=== PATIENT | male | born 1980 | race Caucasian/White ===

== ENCOUNTER 2016-05-11 10:33 | Day surgery (SDC) | payer MEDICAID ==
[2016-05-09 10:25] VITALS: BMI 22.5
[~2016-05-11 10:33] MED LIST: LACTATED RINGERS 1,000 ML IV SCH; LIDOCAINE 1% 20 ML VIAL (10MG/ML) FOR IV START INTRADERMA PRN
[2016-05-11 12:02] VITALS: TEMP 97.4
[2016-05-11] MEDS ORDERED: PROPOFOL 10 MG/ML 20 ML VIAL IV ONE (12:41)
--- NOTE | 2016-05-11 13:18 | P.PCN ---
Date of Procedure: 05/11/16 Procedure(s) Performed: Procedure: Total colonoscopy. Preoperative diagnosis: Intermittent rectal bleeding. Postoperative diagnosis: Low-grade internal hemorrhoids without bleeding at the time of this exam, otherwise, exam to the cecum within normal limits. Preparation: HalfLytely prep. Sedation: Was provided by anesthesia. Brief clinical history: The patient is a 35-year-old male who is referred for this evaluation because of chronic intermittent rectal bleeding. The patient is on the constipated side and may not have a bowel movement for 3-4 days at a time. Sometimes he has painful bowel movements as well. There is family history of colon cancer in his grandparents. This would be his first colonoscopy. Procedure: With the patient on his left lateral decubitus position and after informed consent and adequate sedation, the perianal area was inspected and it did not show any fissures or fistulas. There were no masses felt on digital rectal examination. The Olympus CFQ 160L video colonoscope was then inserted in the rectum in the usual fashion and advanced to the cecum. The mucosa appeared healthy. No polyps or tumors were seen or any obvious diverticular disease or other pathology. I retroflexed endoscope in the rectum before the endoscope was withdrawn. Low-grade internal hemorrhoids were noted but there was no evidence of bleeding. The patient tolerated the procedure well. Plan: The patient was reassured. Discussed dietary measures and local care for hemorrhoids. Further plans can be made based on his course. Would be happy to see in the office if his symptoms persist or worsen. He will follow up with you as planned.
[2016-05-11 13:19] VITALS: RESP 18
[2016-05-11 13:35] VITALS: BP 121/72; PULSE 53
== END 2016-05-11 13:53 | disposition home or self-care (01) ==
LOC: ORWHC2ENDO 10:33
DX: K64.8 Other hemorrhoids (principal); K59.00 Constipation, unspecified; Z80.0 Family history of malignant neoplasm of digestive organs
CPT/HCPCS: 45378; J2704

== ENCOUNTER → 2019-05-04 | Outpatient (CLI) | payer MEDICAID ==
--- NOTE | 2019-05-05 00:58 | CT ---
EXAMINATION TYPE: CT abdomen pelvis w con DATE OF EXAM: 05/04/2019 COMPARISON: HISTORY: RLQ Abd pain, Lump in Inguinal Crease, R/O Hernia. CT DLP: 690.2 mGycm Automated exposure control for dose reduction was used. CONTRAST: Performed with IV Contrast, patient injected with 100mL mL of Isovue 300. Multiple axial sections were obtained from the diaphragm to the floor the pelvis with IV contrast onl y. Lung bases are clear. There is no pleural effusion. Heart size is normal. There is no pericardial eff usion. Liver spleen stomach pancreas appear normal. Gallbladder is contracted. Bile ducts are not dilated. There is no adrenal mass. There is 12 mm cortical cyst upper pole left kidney. Kidneys show satisfact ory contrast opacification. There is no hydronephrosis. Ureters are not dilated. Delayed images show normal renal excretion. There is no retroperitoneal adenopathy. Bladder distends smoothly. There is no inguinal hernia. There is no significant inguinal adenopathy. There is no free fluid in the pelvis. There is no mesenteric edema. There is no ascites or free air. There is no evidence of a bowel obstruction. Appendix is not definitely seen. There is no sign of thi ckened appendix. Bony pelvis is intact. Lumbar spine is intact. Disc spaces are normal. Lumbar vertebra have normal sp acing and alignment. IMPRESSION: No evidence of inguinal mass or hernia. No sign of acute abdomen and pelvis.
== END | disposition home or self-care (01) ==
LOC: LAB 23:10
PROVIDERS: ATTEND Nurse Practitioner
DX: R59.0 Localized enlarged lymph nodes (principal)
CPT/HCPCS: 74177; Q9967